=== PATIENT | female | born 1965 | race Two or more races ===

== ENCOUNTER 2016-05-13 10:34 | Emergency (ER) | payer OTHER ==
[~2016-05-13] VITALS: Ht 162.6 cm; Wt 79.4 kg
[~2016-05-13 10:34] MED LIST: ASPIRIN325 MG ORAL; ATORVASTATIN CA10 MG ORAL; CIPROFLOXACIN500 M2 ORAL; COZAAR25 MG ORAL; FLONASE1 SPRAYS NASAL; LANTUS SOL100 UNIT/1 SUBQ; LOSARTAN POTAS100 MG ORAL; METFORMIN HCL1000 M2 ORAL; METFORMIN HCL500 M1 ORAL; NAPROXEN250 M1 PO; NOVOLIN R100 UNIT/1 SUBQ; PANTOPRAZOLE SO20 MG ORAL; TYLENOL EXTRA500 MG ORAL; ZANTAC150 MG ORAL
[2016-05-13 11:02] VITALS: BP 103/66
[2016-05-13] MEDS ORDERED: PROMETHAZINE-C118 M1 ORAL (11:22)
[2016-05-13] MEDS ORDERED: AZITHROMYCIN250 MG ORAL (11:22)
[2016-05-13] MEDS ORDERED: IBUPROFEN600 MG ORAL (11:22)
[2016-05-13 11:45] VITALS: BP 103/66
--- NOTE | 2016-05-13 14:13 | Emergency Room Report ---
History of Present Illness General Chief Complaint: Upper Respiratory Illness Source: Patient Present Illness HPI 50-year-old female presents to ED for evaluation of cough fever x3 days. Cough is productive with greenish phlegm. Notes bodyaches and chills. Patient has temperature of 100.0 in ED. Patient states she feels weak. Denies nausea or vomiting. No sick contacts or recent travel. Denies chest pain or shortness of breath. No other aggravating or leading factors. Denies any other associated symptoms Allergies: Coded Allergies: PENICILLINS (Unverified Allergy, Intermediate, 05/09/14) Uncoded Allergies: PENICILLIN (Allergy, Unknown, 11/26/15) Patient History Past Medical History: DM, HTN Past Surgical History: none Pertinent Family History: none Social History: Denies: alcohol use, drug use, smoking Last Menstrual Period: 05/11/16 Now: No Immunizations: UTD Reviewed Nursing Documentation: PMH: Agreed, PSxH: Agreed Nursing Documentation-PMH Past Medical History: No History, Except For Hx Hypertension: Yes Hx Pacemaker: No Hx Asthma: No Hx COPD: No Hx Diabetes: Yes Hx Cancer: No Hx Gastrointestinal Problems: No Hx Dialysis: No Hx Neurological Problems: No Hx Cerebrovascular Accident: No Hx Seizures: No Review of Systems All Other Systems: negative except mentioned in HPI Physical Exam Vital Signs Date Time Temp Pulse Resp B/P Pulse Ox O2 Delivery O2 Flow Rate FiO2 05/13/16 10:45 100.0 112 20 103/66 98 Room Air Sp02 EP Interpretation: reviewed, normal General Appearance: no apparent distress, alert, GCS 15, non-toxic Head: normocephalic, atraumatic Eyes: bilateral eye PERRL, bilateral eye normal inspection ENT: hearing grossly normal, normal pharynx, no angioedema, normal voice Neck: full range of motion, supple/symm/no masses Respiratory: chest non-tender, lungs clear, normal breath sounds, speaking full sentences Cardiovascular #1: regular rate, rhythm, no edema Cardiovascular #2: 2+ carotid (R), 2+ carotid (L), 2+ radial (R), 2+ radial (L) , 2+ dorsalis pedis (R), 2+ dorsalis pedis (L) Gastrointestinal: normal bowel sounds, non tender, soft, non-distended, no guarding, no rebound Rectal: deferred Genitourinary: normal inspection, no CVA tenderness Musculoskeletal: back normal, gait/station normal, normal range of motion, non- tender Neurologic: alert, oriented x3, responsive, motor strength/tone normal, sensory intact, speech normal Psychiatric: judgement/insight normal, memory normal, mood/affect normal, no suicidal/homicidal ideation Reflexes: 3+ bicep (R), 3+ bicep (L), 3+ tricep (R), 3+ tricep (L), 3+ knee (R) , 3+ knee (L) Skin: normal color, no rash, warm/dry, well hydrated Lymphatic: no adenopathy Medical Decision Making Diagnostic Impression: Primary Impression: Atypical pneumonia ER Course Hospital Course 50-year-old female presents to ED complaining of productive cough, chills, fever Differential diagnoses include: URI, pharyngitis, otitis media, asthma Clinical course Patient placed on stretcher. After initial history, physical exam reveals a female in no acute distress. Bilateral TM unremarkable. No pharyngeal erythema. No tonsillar exudates. No lymphadenopathy. lungs clear. abdomen soft. Clinical findings consistent with atypical pneumonia. will treat with abx Diagnosis - atypical pneumonia Stable and discharged home with Rx Zpack, cough syrup, motrin. Instructed to followup with PMD. Return to ED if symptoms recur or worsen Last Vital Signs Date Time Temp Pulse Resp B/P Pulse Ox O2 Delivery O2 Flow Rate FiO2 05/13/16 11:45 100.0 20 103/66 98 Room Air 05/13/16 11:02 112 Status: improved Disposition: HOME, SELF-CARE Condition: Stable Scripts Ibuprofen* (MOTRIN*) 600 Mg Tablet 600 MG ORAL Q8H Y for For Pain, #30 TAB 0 Refills Prov: ADELE LUONG M.D. 05/13/16 Codeine/Promethazine Hcl* (PROMETHAZINE-CODEINE SYRUP*) 118 Ml Syrup 5 ML ORAL Q6H Y for For Cough, #118 ML 0 Refills Prov: ADELE LUONG M.D. 05/13/16 Azithromycin* (ZITHROMAX*) 250 Mg Tablet 250 MG ORAL DAILY, #6 TAB 0 Refills Take two tablets by mouth today, then take one tablet by mouth daily for four days Prov: ADELE LUONG M.D. 05/13/16 Patient Instructions: Community-Acquired Pneumonia, Adult, [id number] ADELE LUONG M.D. May 13, 2016 14:13
== END 2016-05-13 11:53 | disposition home or self-care (01) ==
LOC: EMR 11:00
DX: J18.9 Pneumonia, unspecified organism (principal); R50.9 Fever, unspecified; E11.9 Type 2 diabetes mellitus without complications; I10 Essential (primary) hypertension; Z88.0 Allergy status to penicillin
CPT/HCPCS: 99284

== ENCOUNTER 2016-10-03 02:14 | Emergency (ER) | payer OTHER ==
[~2016-10-03] VITALS: Ht 162.6 cm; Wt 75.7 kg
[~2016-10-03 02:14] MED LIST changes: +AZITHROMYCIN250 MG ORAL; +IBUPROFEN600 MG ORAL; +PROMETHAZINE-C118 M1 ORAL
[2016-10-03 02:30] VITALS: BP 137/80
[2016-10-03] MEDS ORDERED: Nitroglycerin Subl 0.4mg tab (Bottle Of 25) SL PRN (02:30)
[2016-10-03] MEDS ORDERED: Aspirin Baby 81mg ORAL ONE (02:30)
[2016-10-03 02:34] VITALS: BP 137/80
[2016-10-03 02:49] LABS: EOSINOPHILS % (AUTO) 2.2 % (0.0-3.0); MEAN CORPUSCULAR HEMOGLOBIN 28.9 PG (27.0-31.0); MEAN CORPUSCULAR HGB CONC 33.4 G/DL (32.0-36.0); MEAN CORPUSCULAR VOLUME 87 FL (80-99); MEAN PLATELET VOLUME 9.1 FL (6.5-10.1); MONOCYTES % (AUTO) 6.9 % (1.0-10.0); NEUTROPHILS % (AUTO) 48.9 % (45.0-75.0); PLATELET COUNT 210 K/UL (150-450); RED BLOOD COUNT 4.94 M/UL (4.20-5.40); RED CELL DISTRIBUTION WIDTH 12.1 % (11.6-14.8); WHITE BLOOD COUNT 9.5 K/UL (4.8-10.8)
[2016-10-03 03:07] LABS: ALANINE AMINOTRANSFERASE 14 U/L (3-33); ALBUMIN/GLOBULIN RATIO 1.2 (1.0-2.7); ANION GAP 17 (5-15); ASPARTATE AMINO TRANSFERASE 20 U/L (5-40); CALCIUM 9.7 mg/dL (8.6-10.2); CARBON DIOXIDE 20 mEQ/L (20-30); CHLORIDE 100 mEQ/L (98-107); CREATININE 0.5 mg/dL (0.5-0.9); GLOMERULAR FILTRATION RATE > 60 mL/min (>60); HEMOLYSIS 24; POTASSIUM 3.6 mEQ/L (3.4-4.9); SODIUM 137 mEQ/L (135-145); TOTAL PROTEIN 7.3 g/dL (6.6-8.7)
[2016-10-03 03:13] LABS: TROPONIN I < 0.30 ng/mL (<=0.30)
[2016-10-03] MEDS ORDERED: Mylanta II UD 30ml ORAL ONE (03:15)
[2016-10-03] MEDS ORDERED: PRILOSEC OTC20 MG ORAL (03:36)
--- NOTE | 2016-10-03 03:37 | Emergency Room Report ---
History of Present Illness General Chief Complaint: Chest Pain Source: Patient Present Illness HPI This is a 51-year-old female with a history of diabetes. Also history anxiety and gastritis. She presents with chief complaint of epigastric pain going to her right chest. Onset for last couple hours. No nausea no vomiting. No fever or chills. No diaphoresis. Pain is 7/10. No exertional component. She already has her gallbladder removed. Allergies: Coded Allergies: PENICILLINS (Unverified Allergy, Intermediate, 05/09/14) Uncoded Allergies: PENICILLIN (Allergy, Unknown, 11/26/15) Patient History Past Medical History: see triage record, old chart reviewed, DM Past Surgical History: other Pertinent Family History: none Social History: Denies: smoking Last Menstrual Period: "LAST WEEK" Now: No Immunizations: other Reviewed Nursing Documentation: PMH: Agreed, PSxH: Agreed Nursing Documentation-PMH Hx Hypertension: Yes Hx Pacemaker: No Hx Asthma: No Hx COPD: No Hx Diabetes: Yes Hx Cancer: No Hx Gastrointestinal Problems: No Hx Dialysis: No Hx Neurological Problems: No Hx Cerebrovascular Accident: No Hx Seizures: No Review of Systems Eye: Denies: eye pain, blurred vision ENT: Denies: ear pain, nose congestion, throat swelling Respiratory: Denies: cough, shortness of breath Cardiovascular: Reports: chest pain, Denies: palpitations Gastrointestinal: Reports: abdominal pain, Denies: diarrhea, nausea, vomiting Musculoskeletal: Denies: back pain, joint pain Skin: Denies: rash Neurological: Denies: headache, numbness Endocrine: Denies: increased thirst, increased urine Hematologic/Lymphatic: Denies: easy bruising All Other Systems: negative except mentioned in HPI Physical Exam Vital Signs Date Time Temp Pulse Resp B/P (MAP) Pulse Ox O2 Delivery O2 Flow Rate FiO2 10/03/16 02:22 97.7 76 18 137/80 100 Room Air vitals normal Sp02 EP Interpretation: reviewed, normal General Appearance: well appearing, no apparent distress, alert Head: normocephalic, atraumatic Eyes: bilateral eye PERRL, bilateral eye EOMI ENT: hearing grossly normal, normal pharynx Neck: full range of motion, supple, no meningismus Respiratory: chest non-tender, lungs clear, normal breath sounds Cardiovascular #1: regular rate, rhythm, no murmur Gastrointestinal: normal bowel sounds, non tender, no mass, no organomegaly, no bruit, non-distended Musculoskeletal: back normal, gait/station normal, normal range of motion Neurologic: alert, oriented x3 Psychiatric: anxious Skin: warm/dry Medical Decision Making Diagnostic Impression: Primary Impression: Chest pain Qualified Codes: R07.9 - Chest pain, unspecified ER Course Patient with atypical chest pain. Most likely GI related. No evidence of ACS, PE, dissection to name a few. Pain better after answer. No relief with nitroglycerin. We'll discharge home. Lab Results Impression labs normal EKG Diagnostic Results Rate: normal Rhythm: NSR ST Segments: no acute changes ASA given to the pt in ED: Yes Rhythm Strip Diag. Results Rhythm Strip Time: 03:35 EP Interpretation: yes Rate: 71 Rhythm: NSR, no PVC's, no ectopy Chest X-Ray Diagnostic Results Chest X-Ray Diagnostic Results : Chest X-Ray Ordered: Yes # of Views/Limited/Complete: 1 View Indication: Chest Pain EP Interpretation: Yes Interpretation: no consolidation, no effusion, no pneumothorax, no acute cardiopulmonary disease Impression: No acute disease Interpreting ER Provider: Electronically signed by Vladimir Marinelli MD Last Vital Signs Date Time Temp Pulse Resp B/P (MAP) Pulse Ox O2 Delivery O2 Flow Rate FiO2 10/03/16 02:34 137/80 10/03/16 02:30 76 18 Room Air 10/03/16 02:30 97.7 100 Status: improved Disposition: HOME, SELF-CARE Condition: Stable Scripts Omeprazole Magnesium (PRILOSEC OTC) 20 Mg Tablet. 20 MG ORAL DAILY, #30 TAB Prov: VLADIMIR MARINELLI M.D. 10/03/16 Patient Instructions: Nonspecific Chest Pain Additional Instructions: Follow up with your in 7 days. Return if symptom worsen. VLADIMIR MARINELLI M.D. Oct 03, 2016 03:37
[2016-10-03 03:57] LABS: CKMB 2.4 ng/mL (< 3.8)
--- NOTE | 2016-10-03 10:30 | Diagnostic Imaging Report ---
Indication: Chest pain Comparison: None A single view chest radiograph was obtained. Findings: Cardiomediastinal appearance is within normal limits for age. Pulmonary vascularity is appropriate. The diaphragmatic contour is smooth and costophrenic angles are sharp. No pleural effusions are identified. The bones are unremarkable. Impression: No acute findings
--- NOTE | 2016-10-03 15:33 | Cardiology Report ---
APPROVED REPORT EKG Measurement Heart [id number] Normal sinus rhythm Rightward axis Borderline ECG
== END 2016-10-03 03:49 | disposition home or self-care (01) ==
LOC: EMR 02:41
DX: R07.9 Chest pain, unspecified (principal); I10 Essential (primary) hypertension; E11.9 Type 2 diabetes mellitus without complications; Z88.0 Allergy status to penicillin; F41.9 Anxiety disorder, unspecified
CPT/HCPCS: 36415; 71010; 80053; 82550; 82553; 84484; 85025; 93005; 99284

== ENCOUNTER 2017-07-19 11:58 | Emergency (ER) | payer OTHER ==
[~2017-07-19] VITALS: Ht 162.6 cm; Wt 74.8 kg
[~2017-07-19 11:58] MED LIST changes: +PRILOSEC OTC20 MG ORAL
[2017-07-19 12:00] VITALS: BP 144/89
[2017-07-19] MEDS ORDERED: Dicyclomine HCl 10mg/5ml oral soln ORAL ONE (12:30)
[2017-07-19] MEDS ORDERED: Mylanta II UD 30ml ORAL ONE (12:30)
[2017-07-19] MEDS ORDERED: Ketorolac 30mg Inj IV ONE (12:30)
[2017-07-19] MEDS ORDERED: Lidocaine 2% Visc 15ml soln ORAL ONE (12:30)
--- NOTE | 2017-07-19 12:36 | Emergency Room Report ---
History of Present Illness General Chief Complaint: Female Urogenital Problems Source: Patient Present Illness HPI 51-year-old female patient presents to ER complaining of vaginal and anal bleeding times one day. Reports she's had normal gallbladder movements, denies diarrhea. Reports that the blood was noticed in her stool with straining and on toilet paper. Reports history of eating lots of spicy foods. reports history of gallbladder removal surgery. Denies history of GERD. Also complains of vaginal bleeding times one day. Reports last menstrual period was on 07/09 and lasted for a month. denies dysuria, hematuria, vaginal discharge. Denies rash. Reports had surgery to have her tubes tied. Denies fever, chest pain, shortness breath. Denies abdominal pain. Denies fainting. Denies vomiting. forced not taking any blood thinners. denies passage of clots. denies taking hormone medication. , no hx of complications or abortions. Reports hx of Diabetes, HTN. Denies hx of stroke or [place]. reports history of hemorrhoids. Allergies: Coded Allergies: PENICILLINS (Unverified Allergy, Intermediate, 05/09/14) Uncoded Allergies: PENICILLIN (Allergy, Unknown, 11/26/15) Patient History Past Medical History: see triage record Last Menstrual Period: 07/09/17 Reviewed Nursing Documentation: PMH: Agreed; PSxH: Agreed Nursing Documentation-PMH Past Medical History: No Stated History Hx Hypertension: Yes Hx Pacemaker: No Hx Asthma: No Hx COPD: No Hx Diabetes: Yes Hx Cancer: No Hx Gastrointestinal Problems: No Hx Dialysis: No Hx Neurological Problems: No Hx Cerebrovascular Accident: No Hx Seizures: No Review of Systems All Other Systems: negative except mentioned in HPI Physical Exam Vital Signs Date Time Temp Pulse Resp B/P (MAP) Pulse Ox O2 Delivery O2 Flow Rate FiO2 07/19/17 12:00 98.4 91 18 144/89 96 Room Air 98.4 Sp02 EP Interpretation: reviewed, normal General Appearance: well appearing, no apparent distress, alert, GCS 15, non- toxic Head: normocephalic, atraumatic Eyes: bilateral eye normal inspection, bilateral eye PERRL ENT: hearing grossly normal, normal pharynx, no angioedema, normal voice, uvula midline, moist mucus membranes Neck: full range of motion Respiratory: lungs clear, normal breath sounds, no rhonchi, no respiratory distress, no accessory muscle use, no wheezing, speaking full sentences Cardiovascular #1: regular rate, rhythm, no edema Gastrointestinal: non tender, soft, no mass, non-distended, no guarding, no rebound, other - negative Rovsing Rectal: hemorrhoids - No incarceration or strangulation Genitourinary: no CVA tenderness Musculoskeletal: back normal, digits/nails normal, gait/station normal, normal range of motion, non-tender Neurologic: alert, oriented x3, responsive, motor strength/tone normal, sensory intact Psychiatric: mood/affect normal Skin: no rash Medical Decision Making PA Attestation Dr. Rich is my supervising Physician whom patient management has been discussed with. Diagnostic Impression: Primary Impression: Hemorrhoids Additional Impressions: Uterine fibroid Dysfunctional uterine bleeding ER Course Pt presents to ED c/o vaginal bleeding and anal bleeding. DDX considered but are not limited to threatened , menorrhagia, DUB, UTI , constipation, hemorrhoids, fibroids, malignancy. no left lower quadrant pain, patient afebrile, low suspicion for diverticulitis , does not require CT of abdomen at this time. VITAL SIGNS are WNL, patient is afebrile. mild elevation of blood pressure, will continue to monitor. denies chest pain, shortness of breath. Does not require acute intervention at this time. History of hypertension, has taken medication. Ordered CBC, CMP, Type and Screen, UA, bHCG, IV NS and pelvic US. Tylenol for pain control. Consult OBGYN to determine discharge vs. admit vs. transfer to [facility]. ER COURSE: Patient resting comfortably, in no acute distress, nontoxic appearing. Patient reports pain symptoms resolved since onset. CBC shows no elevation in WBC, no signs of anemia, hemoglobin within normal limits. CMP unremarkable. Elevated blood glucose, likely related to hx of diabetes. Advised patient to take medications, f/u with PCP to discuss treatment and management of DM. UA results no WBCs, few epithelial cells bacteria, low suspicion for UTI, does not require antibiotics at this time. multiple RBCs and urine likely due to vaginal bleeding symptoms. Ordered ultrasound to evaluate for underlying pathology. PT, PTT, INR within normal limits. BetaHCG <1, patient unlikely or , hx of tubal ligation. Blood type O+ Pelvic US shows endometrium and uterine fibroids. Follow-up with [facility] for further management and evaluation. Uterine fibroids likely causing symptoms. Endometrium may be related to underlying cause, needs [facility] follow-up to rule out malignancy. follow-up with [facility], discuss further treatment and referral at that time. Take Tylenol for pain symptoms. Rectal exam shows patient has external hemorrhoids, no signs of strength elation or incarceration. instructed patient to not strain while defecating.Bleeding from rectum likely due to straining and diet. Drink plenty of fluids. avoid spicy foods. Will provide medication to patient. follow up with PCP, discuss referral to surgeon as needed for removal of hemorrhoids. provide Colace to help soften stool. patient resting comfortably in no acute distress, nontoxic appearing. Patient vitals within normal limits. Patient okay for discharge home. DISCHARGE: -Rx provided for Tylenol for pain -Rx provided for Annusol -Rx provided for Colace At this time pt. is stable for d/c to home. At this time patient is resting comfortably, in no acute distress, nontoxic appearing, smiling and talking without difficulty, smiling and laughing. Will provide printed patient care instructions, and any necessary prescriptions. Patient instructed to follow with OBGYN for further treatment and referral as needed. Care plan and follow up instructions have been discussed with the patient prior to discharge. Patient reports understanding and agreement to treatment plan. Patient questions asked and answered. ER precautions given, patient instructed to return to ER immediately for any new or worsening of symptoms. - Please note that this Emergency Department Report was dictated using [employer] capital clerk technology software, occasionally this can lead to erroneous entry secondary to interpretation by the dictation equipment. Labs Test 07/19/17 12:45 07/19/17 12:52 Urine Color Red Urine Appearance Cloudy Urine pH 6 (4.5-8.0) Urine Specific [place] 1.015 (1.005-1.035) Urine Protein 4+ (NEGATIVE) Urine Glucose (UA) 4+ (NEGATIVE) Urine Ketones Negative (NEGATIVE) Urine Occult Blood 5+ (NEGATIVE) Urine Nitrite Negative (NEGATIVE) Urine Bilirubin Negative (NEGATIVE) Urine Urobilinogen Normal MG/DL (0.0-1.0) Urine Leukocyte Esterase 1+ (NEGATIVE) Urine RBC Tntc /HPF (0 - 2) Urine WBC 0-2 /HPF (0 - 2) Urine Squamous Epithelial Cells Occasional /LPF Urine Bacteria Occasional /HPF (NONE) White Blood Count 8.8 K/UL (4.8-10.8) Red Blood Count 5.33 M/UL (4.20-5.40) Hemoglobin 15.3 G/DL (12.0-16.0) Hematocrit 45.9 % (37.0-47.0) Mean Corpuscular Volume 86 FL (80-99) Mean Corpuscular Hemoglobin 28.6 PG (27.0-31.0) Mean Corpuscular Hemoglobin Concent 33.2 G/DL (32.0-36.0) Red Cell Distribution Width 11.7 % (11.6-14.8) Platelet Count 186 K/UL (150-450) Mean Platelet Volume 10.7 FL (6.5-10.1) Neutrophils (%) (Auto) 66.8 % (45.0-75.0) Lymphocytes (%) (Auto) 25.4 % (20.0-45.0) Monocytes (%) (Auto) 5.1 % (1.0-10.0) Eosinophils (%) (Auto) 1.8 % (0.0-3.0) Basophils (%) (Auto) 0.9 % (0.0-2.0) Prothrombin Time 10.1 SEC (9.30-11.50) Prothromb Time International Ratio 1.0 (0.9-1.1) Activated Partial Thromboplast Time 25 SEC (23-33) Sodium Level 133 MMOL/L (136-145) Potassium Level 4.1 MMOL/L (3.5-5.1) Chloride Level 100 MMOL/L (98-107) Carbon Dioxide Level 27 MMOL/L (21-32) Anion Gap 6 mmol/L (5-15) Blood Urea Nitrogen 11 mg/dL (7-18) Creatinine 0.7 MG/DL (0.55-1.30) Estimat Glomerular Filtration Rate > 60 mL/min (>60) Glucose Level 341 MG/DL (74-106) Calcium Level 9.1 MG/DL (8.5-10.1) Total Bilirubin 0.3 MG/DL (0.2-1.0) Aspartate Amino Transf (AST/SGOT) 20 U/L (15-37) Alanine Aminotransferase (ALT/SGPT) 31 U/L (12-78) Alkaline Phosphatase 128 U/L (46-116) Total Protein 8.0 G/DL (6.4-8.2) Albumin 3.9 G/DL (3.4-5.0) Globulin 4.1 g/dL Albumin/Globulin Ratio 1.0 (1.0-2.7) Lipase 150 U/L (73-393) Human Chorionic Gonadotropin, Quant 1 mIU/mL (1-6) CT/MRI/US Diagnostic Results CT/MRI/US Diagnostic Results : Imaging Test Ordered: Pelvic US Impression Impression: Somewhat thickened, 14 mm, endometrium. Small central fluid collection may represent a small amount of blood, given stated clinical history of vaginal bleeding Small uterine fibroids No definite adnexal mass. Note Limited visualization of the right ovary, nonvisualization of the left ovary, however. Small amount of free cul-de-sac fluid, may be physiologic if patient still perimenopausal Last Vital Signs Date Time Temp Pulse Resp B/P (MAP) Pulse Ox O2 Delivery O2 Flow Rate FiO2 07/19/17 12:00 98.4 91 18 144/89 96 Room Air 98.4 Disposition: HOME, SELF-CARE Condition: Stable Scripts Acetaminophen* (TYLENOL EXTRA STRENGTH*) 500 Mg Tablet 500 MG ORAL Q8H PRN for Prn Headache/Temp > 101, #30 TAB 0 Refills Prov: Eduardo Hernandez 07/19/17 Docusate Sodium* (COLACE*) 100 Mg Capsule 100 MG ORAL TWICE A DAY, #10 CAP Prov: Eduardo Hernandez 07/19/17 Hydrocortisone Acetate* (ANUSOL-HC*) 25 Mg Supp.rect 1 SUPP RECTAL TWICE A DAY, #20 SUPP Prov: Eduardo Hernandez 07/19/17 Referrals: NEHEMIAS KEMP Patient Instructions: Dysfunctional Uterine Bleeding, Hemorrhoids, [id number] , Uterine Fibroids, [id number] Additional Instructions: Followup with primary care provider in 3 -5 days. Discuss referral to surgeon as needed for removal of hemorrhoids. Followup with behavior support specialist 2 discussed bleeding symptoms. Take medications as directed. Avoid straining and spicy food. Patient questions asked and answered. ER precautions given, patient instructed to return to ER immediately for any new or worsening of symptoms. Eduardo Hernandez Jul 19, 2017 12:36
[2017-07-19 13:08] LABS: BASOPHILS % (AUTO) 0.9 % (0.0-2.0); EOSINOPHILS % (AUTO) 1.8 % (0.0-3.0); HEMATOCRIT 45.9 % (37.0-47.0); HEMOGLOBIN 15.3 G/DL (12.0-16.0); LYMPHOCYTES % (AUTO) 25.4 % (20.0-45.0); MEAN CORPUSCULAR VOLUME 86 FL (80-99); MONOCYTES % (AUTO) 5.1 % (1.0-10.0); NEUTROPHILS % (AUTO) 66.8 % (45.0-75.0); PLATELET COUNT 186 K/UL (150-450); RED BLOOD COUNT 5.33 M/UL (4.20-5.40); RED CELL DISTRIBUTION WIDTH 11.7 % (11.6-14.8); WHITE BLOOD COUNT 8.8 K/UL (4.8-10.8)
[2017-07-19 13:30] LABS: ANION GAP 6 mmol/L (5-15); BLOOD UREA NITROGEN 11 mg/dL (7-18); CALCIUM 9.1 MG/DL (8.5-10.1); CARBON DIOXIDE 27 MMOL/L (21-32); CHLORIDE 100 MMOL/L (98-107); CREATININE 0.7 MG/DL (0.55-1.30); POTASSIUM 4.1 MMOL/L (3.5-5.1); SODIUM 133 MMOL/L (136-145)
[2017-07-19 13:34] LABS: ALANINE AMINOTRANSFERASE 31 U/L (12-78); ALBUMIN 3.9 G/DL (3.4-5.0); ALKALINE PHOSPHATASE 128 U/L (46-116); ASPARTATE AMINO TRANSFERASE 20 U/L (15-37); BILIRUBIN,TOTAL 0.3 MG/DL (0.2-1.0)
[2017-07-19 13:34] LABS: APPEARANCE,URINE CLOUDY; BILIRUBIN, URINE NEGATIVE (NEGATIVE); GLUCOSE, URINE (UA) 4+ (NEGATIVE); KETONES,URINE NEGATIVE (NEGATIVE); LEUKOCYTE ESTERASE ,URINE 1+ (NEGATIVE); NITRITE,URINE NEGATIVE (NEGATIVE); PH,URINE 6 (4.5-8.0); PROTEIN,URINE 4+ (NEGATIVE); UROBILINOGEN,URINE NORMAL MG/DL (0.0-1.0)
[2017-07-19 13:35] LABS: COLOR,URINE RED
[2017-07-19] MEDS ORDERED: ANUSOL-HC25 MG RECTAL (13:38)
[2017-07-19] MEDS ORDERED: COLACE100 MG ORAL (13:38)
[2017-07-19 14:00] VITALS: BP 140/78
[2017-07-19 16:21] VITALS: BP 140/85
--- NOTE | 2017-07-19 17:03 | Diagnostic Imaging Report ---
Indication: Vaginal bleeding x1 month Technique: Transabdominal and transvaginal images Comparison: none Findings: Uterus measures 8.8 cm length by 5 cm AP. Endometrium measures 14 mm thick. Small focal fluid collection seen centrally within the endometrium. There are small anterior fundal fibroids, largest measuring 2.3 cm long axis dimension. There is a small amount of free cul-de-sac fluid. Small cervical nabothian cysts are demonstrated. On the endovaginal exam, the ovaries are obscured by adjacent bowel gas. On the transvaginal exam, the right ovary measures 3.4 cm in length. The left ovary could not be visualized on either set of images. Impression: Somewhat thickened, 14 mm, endometrium. Small central fluid collection may represent a small amount of blood, given stated clinical history of vaginal bleeding Small uterine fibroids No definite adnexal mass. Note Limited visualization of the right ovary, nonvisualization of the left ovary, however. Small amount of free cul-de-sac fluid, may be physiologic if patient still perimenopausal
[2017-07-19] MEDS ORDERED: TYLENOL EXTRA500 MG ORAL (17:39)
[2017-07-19 18:42] VITALS: BP 128/82
== END 2017-07-19 18:42 | disposition home or self-care (01) ==
LOC: EMR 12:38
DX: K64.9 Unspecified hemorrhoids (principal); D25.9 Leiomyoma of uterus, unspecified; N93.8 Other specified abnormal uterine and vaginal bleeding; I10 Essential (primary) hypertension; E11.9 Type 2 diabetes mellitus without complications; Z88.0 Allergy status to penicillin
CPT/HCPCS: 36415; 76830; 76856; 80053; 81003; 83690; 84702; 85025; 85610; 85730; 86850; 86900; 86901; 96360; 96374; 99284; J1885

== ENCOUNTER 2018-07-07 22:30 | Emergency (ER) | payer OTHER ==
[~2018-07-07] VITALS: Ht 160 cm; Wt 74.8 kg
[~2018-07-07 22:30] MED LIST changes: +ANUSOL-HC25 MG RECTAL; +COLACE100 MG ORAL; +DICYCLOMINE HCL10 MG ORAL; +ONDANSETRON ODT4 MG BC; +RANITIDINE HCL150 MG ORAL
[2018-07-07 22:45] VITALS: BP 126/76
--- NOTE | 2018-07-07 22:45 | NUR ---
ED Nurse Note: Pt walked in to ER with reports of epigastric pain x2-3 days with N/V/D. States she was seen here for same recently. Pain progressively worse today with vomiting 3x and diarrhea approx every 30 min. Pt A&O x4. Noted to be tearful & grasping at abd. No active vomiting at present. Ambulatory with steady gait. break out worker attached. Bed in lowest locked position. Side rails up x2. Fall & safety precautions maintained. at bedside.
[2018-07-07] MEDS ORDERED: Morphine Sulfate 4mg/ml Inj (IV USE ONLY) IVP ONE (23:00)
[2018-07-07 23:04] LABS: BASOPHILS % (AUTO) 1.3 % (0.0-2.0); EOSINOPHILS % (AUTO) 0.3 % (0.0-3.0); HEMATOCRIT 41.1 % (37.0-47.0); HEMOGLOBIN 14.8 G/DL (12.0-16.0); LYMPHOCYTES % (AUTO) 36.1 % (20.0-45.0); MEAN CORPUSCULAR VOLUME 80 FL (80-99); MONOCYTES % (AUTO) 12.7 % (1.0-10.0); NEUTROPHILS % (AUTO) 49.6 % (45.0-75.0); PLATELET COUNT 152 K/UL (150-450); RED BLOOD COUNT 5.12 M/UL (4.20-5.40); RED CELL DISTRIBUTION WIDTH 11.2 % (11.6-14.8); WHITE BLOOD COUNT 5.5 K/UL (4.8-10.8)
[2018-07-07 23:16] LABS: ANION GAP 13 mmol/L (5-15); BLOOD UREA NITROGEN 6 mg/dL (7-18); CALCIUM 8.8 MG/DL (8.5-10.1); CARBON DIOXIDE 21 MMOL/L (21-32); CHLORIDE 100 MMOL/L (98-107); CREATININE 0.6 MG/DL (0.55-1.30); POTASSIUM 3.5 MMOL/L (3.5-5.1); SODIUM 134 MMOL/L (136-145)
[2018-07-07 23:20] LABS: ALANINE AMINOTRANSFERASE 89 U/L (12-78); ALBUMIN 3.1 G/DL (3.4-5.0); ALBUMIN/GLOBULIN RATIO 0.8 (1.0-2.7); ALKALINE PHOSPHATASE 141 U/L (46-116); ASPARTATE AMINO TRANSFERASE 44 U/L (15-37); BILIRUBIN,TOTAL 0.6 MG/DL (0.2-1.0)
[2018-07-08] MEDS ORDERED: Morphine Sulfate 4mg/ml Inj (IV USE ONLY) IVP ONE
--- NOTE | 2018-07-08 00:22 | NUR ---
ED Nurse Note: Pt to US.
--- NOTE | 2018-07-08 01:08 | NUR ---
ED Nurse Note: Return from US. Pt reports decreased pain & is noted to be more comfortable.
[2018-07-08 01:09] VITALS: BP 136/74
[2018-07-08 01:32] LABS: APPEARANCE,URINE CLEAR; BILIRUBIN, URINE NEGATIVE (NEGATIVE); COLOR,URINE PALE YELLOW; GLUCOSE, URINE (UA) 4+ (NEGATIVE); KETONES,URINE 4+ (NEGATIVE); LEUKOCYTE ESTERASE ,URINE NEGATIVE (NEGATIVE); NITRITE,URINE NEGATIVE (NEGATIVE); PH,URINE 6 (4.5-8.0); UROBILINOGEN,URINE NORMAL MG/DL (0.0-1.0)
[2018-07-08 01:40] LABS: PROTEIN,URINE NEGATIVE (NEGATIVE)
--- NOTE | 2018-07-08 02:07 | Emergency Room Report ---
History of Present Illness General Chief Complaint: Abdominal Pain Source: Patient, Medical Record Present Illness HPI Patient is a 52-year-old female presented after increased nausea and vomiting and abdominal pain. Patient had prior history of cholecystectomy. She reports having persistent pain to the abdomen. Patient had been seen here one day prior to arrival for similar symptoms and was diagnosed with colitis. She had CT imaging at that time which showed a transverse as well as descending colon thickening. She had not been having any fever. She denies any bloody stools. Patient reports having some diarrhea. She reports having persistent abdominal pain which is somewhat worsened. Allergies: Coded Allergies: PENICILLINS (Unverified Allergy, Intermediate, 05/09/14) Uncoded Allergies: PENICILLIN (Allergy, Unknown, 11/26/15) Patient History Past Medical History: see triage record, DM Last Menstrual Period: 06/2018 Now: No Reviewed Nursing Documentation: PMH: Agreed; PSxH: Agreed Nursing Documentation-PMH Past Medical History: No History, Except For Hx Hypertension: Yes Hx Pacemaker: No Hx Asthma: No Hx COPD: No Hx Diabetes: Yes Hx Cancer: No Hx Gastrointestinal Problems: No Hx Dialysis: No Hx Neurological Problems: No Hx Cerebrovascular Accident: No Hx Seizures: No Review of Systems All Other Systems: negative except mentioned in HPI Physical Exam Vital Signs Date Time Temp Pulse Resp B/P (MAP) Pulse Ox O2 Delivery O2 Flow Rate FiO2 07/07/18 22:40 98.2 90 18 126/76 (93) 99 Room Air Sp02 EP Interpretation: reviewed, normal General Appearance: normal inspection, well appearing, alert, GCS 15, moderate distress Head: atraumatic ENT: normal ENT inspection, hearing grossly normal, normal voice Neck: normal inspection, full range of motion, supple, no bony tend Respiratory: normal inspection, lungs clear, normal breath sounds, no respiratory distress, no retraction, no wheezing Cardiovascular #1: regular rate, rhythm, no edema Gastrointestinal: normal inspection, normal bowel sounds, non tender, soft, no guarding, no hernia, tenderness - mild diffuse Genitourinary: no CVA tenderness Musculoskeletal: normal inspection, back normal, normal range of motion Neurologic: normal inspection, alert, oriented x3, responsive, physical science teacher III-XII nml as tested, speech normal Psychiatric: normal inspection, judgement/insight normal, mood/affect normal Skin: normal inspection, normal color, no rash Medical Decision Making Diagnostic Impression: Primary Impression: Colitis ER Course Patient presented for abdominal pain. Differential diagnosis include was not limited to colitis, appendicitis, ischemic bowel, mesenteric adenitis among others. Because of complexity of patient's case laboratory testing and imaging studies were ordered. Laboratory testing was unremarkable. Patient was noted to have recent CT imaging which showed multiple areas of thickening of bowel wall as well as inflammatory changes. Patient was started on IV pain medications. She was started on IV fluids and antiemetics. She is noted to have some improvement. was contacted for capitated hospital transfer due to continued pain. Labs Test 07/07/18 22:24 07/07/18 23:35 07/08/18 01:16 White Blood Count 5.5 K/UL (4.8-10.8) Red Blood Count 5.12 M/UL (4.20-5.40) Hemoglobin 14.8 G/DL (12.0-16.0) Hematocrit 41.1 % (37.0-47.0) Mean Corpuscular Volume 80 FL (80-99) Mean Corpuscular Hemoglobin 28.8 PG (27.0-31.0) Mean Corpuscular Hemoglobin Concent 35.9 G/DL (32.0-36.0) Red Cell Distribution Width 11.2 % (11.6-14.8) Platelet Count 152 K/UL (150-450) Mean Platelet Volume 7.3 FL (6.5-10.1) Neutrophils (%) (Auto) 49.6 % (45.0-75.0) Lymphocytes (%) (Auto) 36.1 % (20.0-45.0) Monocytes (%) (Auto) 12.7 % (1.0-10.0) Eosinophils (%) (Auto) 0.3 % (0.0-3.0) Basophils (%) (Auto) 1.3 % (0.0-2.0) Prothrombin Time 10.6 SEC (9.30-11.50) Prothromb Time International Ratio 1.0 (0.9-1.1) Activated Partial Thromboplast Time 27 SEC (23-33) Sodium Level 134 MMOL/L (136-145) Potassium Level 3.5 MMOL/L (3.5-5.1) Chloride Level 100 MMOL/L (98-107) Carbon Dioxide Level 21 MMOL/L (21-32) Anion Gap 13 mmol/L (5-15) Blood Urea Nitrogen 6 mg/dL (7-18) Creatinine 0.6 MG/DL (0.55-1.30) Estimat Glomerular Filtration Rate > 60 mL/min (>60) Glucose Level 299 MG/DL (74-106) Calcium Level 8.8 MG/DL (8.5-10.1) Total Bilirubin 0.6 MG/DL (0.2-1.0) Aspartate Amino Transf (AST/SGOT) 44 U/L (15-37) Alanine Aminotransferase (ALT/SGPT) 89 U/L (12-78) Alkaline Phosphatase 141 U/L (46-116) Total Protein 7.2 G/DL (6.4-8.2) Albumin 3.1 G/DL (3.4-5.0) Globulin 4.1 g/dL Albumin/Globulin Ratio 0.8 (1.0-2.7) Lipase 201 U/L (73-393) Lactic Acid Level 1.20 mmol/L (0.4-2.0) Urine Color Pale yellow Urine Appearance Clear Urine pH 6 (4.5-8.0) Urine Specific Williamson 1.015 (1.005-1.035) Urine Protein Negative (NEGATIVE) Urine Glucose (UA) 4+ (NEGATIVE) Urine Ketones 4+ (NEGATIVE) Urine Blood Negative (NEGATIVE) Urine Nitrite Negative (NEGATIVE) Urine Bilirubin Negative (NEGATIVE) Urine Urobilinogen Normal MG/DL (0.0-1.0) Urine Leukocyte Esterase Negative (NEGATIVE) Last Vital Signs Date Time Temp Pulse Resp B/P (MAP) Pulse Ox O2 Delivery O2 Flow Rate FiO2 07/08/18 01:09 98.2 07/08/18 01:09 78 12 136/74 95 Room Air Status: improved Disposition: HOME, SELF-CARE Condition: Stable Referrals: NON PHYSICIAN (PCP) Matty Raymundo MD Jul 08, 2018 02:07
[2018-07-08 02:10] VITALS: BP 128/67
--- NOTE | 2018-07-08 02:11 | NUR ---
ED Nurse Note: Report given to Chris HENDRIX with [facility] [address] for transport to [facility]. Addendum: 07/08/18 at 0217 by ALEX ED Nurse Note: Pt A&O x4. IV patent & intact, saline lock. Leaving with all belongings. aware of pt transfer to [facility].
--- NOTE | 2018-07-08 02:25 | NUR ---
ED Nurse Note: Report given to David MCCAULEY at [facility]. Nurse accepts & acknowledges report.
--- NOTE | 2018-07-08 09:34 | Diagnostic Imaging Report ---
Indication: Abdominal pain Technique: Grayscale and duplex Doppler imaging of the abdomen performed. Comparison: None Findings: The liver is echogenic. Doppler interrogation of the main portal vein shows patency with hepatopedal, monophasic flow. There is no biliary ductal dilitation identified. The CBD measures 8 to 9 mm. The gallbladder is absent. The demonstrated part of the pancreas, aorta and IVC show no abnormalities. Both kidneys appear unremarkable. There is no hydronephrosis. The spleen is normal in size, contour and echogenicity. There is no free fluid identified. IMPRESSION: Mild fatty liver Status post cholecystectomy
== END 2018-07-08 02:26 | disposition home or self-care (01) ==
LOC: EMR 23:00
DX: K52.9 Noninfective gastroenteritis and colitis, unspecified (principal); Z90.49 Acquired absence of other specified parts of digestive tract; Z88.0 Allergy status to penicillin; I10 Essential (primary) hypertension; E11.9 Type 2 diabetes mellitus without complications
CPT/HCPCS: 36415; 76700; 80053; 81003; 83605; 83690; 85025; 85610; 85730; 96361; 96374; 96375; 96376; 99284; J2270; J2405; S0028

== ENCOUNTER 2019-03-25 09:11 | Emergency (ER) | payer OTHER ==
[~2019-03-25] VITALS: Ht 160 cm; Wt 70.3 kg
--- NOTE | 2019-03-25 09:28 | NUR ---
ED Nurse Note: Pt ambulated to ed c/o head pain s/p laundry pipbelen fell onto her head last sunday night. Placed on bed and gown; ERMD on bedside.
[2019-03-25 09:29] VITALS: BP 146/88
[2019-03-25] MEDS ORDERED: Metoclopramide 10mg/2ml Inj IM ONE (09:45)
[2019-03-25] MEDS ORDERED: Acetaminophen 500mg (ES) tab ORAL ONE (09:45)
[2019-03-25] MEDS ORDERED: DiphenhydrAMINE 25mg Tab ORAL ONE (09:45)
--- NOTE | 2019-03-25 09:51 | Emergency Room Report ---
History of Present Illness General Chief Complaint: Head Injury Source: Patient Present Illness HPI 53-year-old female presents with closed head injury, Sunday night, a piece of laundry pipe hit her on the head from the ceiling, no LOC no nausea no vomiting she endorses a dull headache, severity is mild, she endorses an ache where it hit, patient presents for evaluation Allergies: Coded Allergies: PENICILLINS (Unverified Allergy, Intermediate, 05/09/14) Uncoded Allergies: PENICILLIN (Allergy, Unknown, 11/26/15) Patient History Past Medical History: see triage record Last Menstrual Period: 5 months ago Reviewed Nursing Documentation: PMH: Agreed; PSxH: Agreed Nursing Documentation-PMH Past Medical History: No History, Except For Hx Hypertension: Yes Hx Pacemaker: No Hx Asthma: No Hx COPD: No Hx Diabetes: Yes Hx Cancer: No Hx Gastrointestinal Problems: No Hx Dialysis: No Hx Neurological Problems: No Hx Cerebrovascular Accident: No Hx Seizures: No Review of Systems All Other Systems: negative except mentioned in HPI Physical Exam Vital Signs Date Time Temp Pulse Resp B/P (MAP) Pulse Ox O2 Delivery O2 Flow Rate FiO2 03/25/19 09:19 98.4 80 16 146/88 (107) 100 Room Air Sp02 EP Interpretation: reviewed, normal General Appearance: well appearing, no apparent distress, alert Head: normocephalic, atraumatic, other - No obvious deformity no ecchymosis Eyes: bilateral eye PERRL, bilateral eye EOMI ENT: uvula midline, moist mucus membranes Neck: supple, thyroid normal, supple/symm/no masses Respiratory: lungs clear, no respiratory distress, no retraction, no accessory muscle use Cardiovascular #1: normal peripheral pulses, regular rate, rhythm, no edema, no gallop, no murmur Gastrointestinal: non tender, soft, no guarding, no rebound Musculoskeletal: normal inspection Neurologic: alert, oriented x3 Psychiatric: mood/affect normal Skin: no rash, warm/dry Medical Decision Making Diagnostic Impression: Primary Impression: Acute head injury Qualified Codes: S09.90XA - Unspecified injury of head, initial encounter ER Course 53-year-old female presents with headache after a pipe from the ceiling hit her head, no LOC, differential diagnosis includes subarachnoid subdural, closed head injury will obtain a CT scan, no obvious external injury on exam CT/MRI/US Diagnostic Results CT/MRI/US Diagnostic Results : Impression Procedure: CT Head no Contrast Indications: Headache, status post head trauma Technique: Spiral acquisitions obtained through the brain. Angled axial and coronal 5 x 5 mm slices were reconstructed. Total dose length product 1072 mGycm. CTDI vol(s) 53 mGy. Dose reduction achieved using automated exposure control Comparison: None. Findings: No acute intercranial hemorrhage or edema. No mass effect nor midline shift. Normal silva-white differentiation. Normal size ventricles and extra- axial CSF spaces. Visualized orbits and sinuses are unremarkable. The mastoids are clear. The calvarium is intact Impression: Negative The CT scanner at [facility] is accredited by the [employer] and the scans are performed using protocols designed to limit radiation exposure to as low as reasonably achievable to attain images of sufficient resolution adequate for diagnostic evaluation. Dictated By: Ramone Anderson MD Electronically Signed By: Ramone Anderson MD Signed Date/Time 03/25/19 1007 CC: Nawaf Alcantar MD Last Vital Signs Date Time Temp Pulse Resp B/P (MAP) Pulse Ox O2 Delivery O2 Flow Rate FiO2 03/25/19 09:29 98.4 65 16 146/88 100 Room Air Disposition: HOME, SELF-CARE Condition: Stable Scripts Ibuprofen* (MOTRIN*) 600 Mg Tablet 600 MG ORAL Q8H PRN for For Pain, #30 TAB 0 Refills Prov: Nawaf Alcantar MD 03/25/19 Referrals: NON PHYSICIAN (PCP) [facility] Diego Mcgovern [facility] Patient Instructions: Head Injury, Adult Additional Instructions: The patient was provided with discharge instructions, notified to follow-up with a primary care doctor and or specialist in the next 24-48 hours, and to return to the ED if they have worsening of their symptoms. Please note that this report is being documented using [employer] technology. This can lead to erroneous entry secondary to incorrect interpretation by the dictating instrument. Nawaf Alcantar MD Mar 25, 2019 09:51
--- NOTE | 2019-03-25 09:56 | NUR ---
ED Nurse Note: pt. came bcak from radiology in stable condition via wheelchair. no s/s of acute resp distress noted at this time
--- NOTE | 2019-03-25 10:12 | Diagnostic Imaging Report ---
Indications: Headache, status post head trauma Technique: Spiral acquisitions obtained through the brain. Angled axial and coronal 5 x 5 mm slices were reconstructed. Total dose length product 1072 mGycm. CTDI vol(s) 53 mGy. Dose reduction achieved using automated exposure control Comparison: None. Findings: No acute intercranial hemorrhage or edema. No mass effect nor midline shift. Normal silva-white differentiation. Normal size ventricles and extra-axial CSF spaces. Visualized orbits and sinuses are unremarkable. The mastoids are clear. The calvarium is intact Impression: Negative The CT scanner at [facility] is accredited by the [employer] and the scans are performed using protocols designed to limit radiation exposure to as low as reasonably achievable to attain images of sufficient resolution adequate for diagnostic evaluation.
[2019-03-25] MEDS ORDERED: IBUPROFEN600 MG ORAL (10:21)
[2019-03-25 10:24] VITALS: BP 133/84
--- NOTE | 2019-03-25 10:25 | NUR ---
ER DISCHARGE NOTE: Patient is cleared to be discharged per ERMD, pt is aox4, on room air, with stable vital signs. pt was given dc and prescription instructions, pt was able to verbalize understanding, pt id band removed. pt is able to ambulate with steady gait. pt took all belongings.
== END 2019-03-25 10:25 | disposition home or self-care (01) ==
LOC: EMR 09:27
DX: S09.90XA Unspecified injury of head, initial encounter (principal); W20.8XXA Other cause of strike by thrown, projected or falling object, initial encounter; Y92.9 Unspecified place or not applicable; I10 Essential (primary) hypertension; Z88.0 Allergy status to penicillin; E11.9 Type 2 diabetes mellitus without complications
CPT/HCPCS: 70450; 96372; J2765; J8540; Z7502; 99284

== ENCOUNTER 2019-04-03 05:58 | Emergency (ER) | payer OTHER ==
[~2019-04-03] VITALS: Ht 162.6 cm; Wt 74.8 kg
[2019-04-03 06:12] VITALS: BP 125/75
--- NOTE | 2019-04-03 06:15 | NUR ---
ED Nurse Note: Patient walked in from home d/t upper middle head pain radiating to left eye and cheek. Per patient, a pipe fell on her head a week ago and the pain is unresolved. Patient rates pain 8/10. Patient aao x 4 and ambulatory. No acute distress noted.
--- NOTE | 2019-04-03 06:22 | NUR ---
ED Nurse Note: ERMD at bedside.
[2019-04-03] MEDS ORDERED: Ketorolac 30mg Inj IV ONE (06:30)
[2019-04-03] MEDS ORDERED: Acetaminophen 500mg (ES) tab ORAL ONE (06:30)
[2019-04-03] MEDS ORDERED: DiphenhydrAMINE 50mg/ml Inj IVP ONE (06:30)
--- NOTE | 2019-04-03 06:31 | Emergency Room Report ---
History of Present Illness General Chief Complaint: Head Injury Source: Patient Present Illness HPI 53-year-old female history of posttraumatic headache after a pipe from the ceiling hit her head approximately a week ago now presents with a recurrent headache that started gradually on Sunday has been in the forehead and has been constant not worsened or, position no fevers no chills not sudden, not worst headache of her life, patient presents for evaluation Allergies: Coded Allergies: PENICILLINS (Unverified Allergy, Intermediate, 05/09/14) Uncoded Allergies: PENICILLIN (Allergy, Unknown, 11/26/15) Patient History Past Medical History: see triage record Last Menstrual Period: 2018 Now: No : 2 Para: 2 Reviewed Nursing Documentation: PMH: Agreed; PSxH: Agreed Nursing Documentation-PMH Hx Hypertension: Yes Hx Pacemaker: No Hx Asthma: No Hx COPD: No Hx Diabetes: Yes Hx Cancer: No Hx Gastrointestinal Problems: No Hx Dialysis: No Hx Neurological Problems: No Hx Cerebrovascular Accident: No Hx Seizures: No Review of Systems All Other Systems: negative except mentioned in HPI Physical Exam Vital Signs Date Time Temp Pulse Resp B/P (MAP) Pulse Ox O2 Delivery O2 Flow Rate FiO2 04/03/19 06:03 98.1 77 17 122/71 (88) 95 Room Air Sp02 EP Interpretation: reviewed, normal General Appearance: well appearing, no apparent distress, alert Head: normocephalic, atraumatic Eyes: bilateral eye PERRL, bilateral eye EOMI ENT: uvula midline, moist mucus membranes Neck: supple, thyroid normal, supple/symm/no masses Respiratory: lungs clear, no respiratory distress, no retraction, no accessory muscle use Cardiovascular #1: normal peripheral pulses, regular rate, rhythm, no edema, no gallop, no murmur Gastrointestinal: non tender, soft, no guarding, no rebound Musculoskeletal: normal inspection Neurologic: alert, motor strength/tone normal, melter supervisor III-XII nml as tested, oriented x3, cerebellar normal - Finger-nose testing intact, Romberg negative, no pronator drift, normal gait Psychiatric: mood/affect normal Skin: no rash, warm/dry Medical Decision Making Diagnostic Impression: Primary Impression: Post-traumatic headache, not intractable Qualified Codes: G44.319 - Acute post-traumatic headache, not intractable ER Course Based on the patient's history and physical there is very low clinical suspicion for significant intracranial pathology. There are no red flags of GUILLEN, not sudden in onset, not maximal in onset, no acute neurological findings, no fever with head stiffness. Low suspicion for subarachnoid hemorrhage, encephalitis, meningitis. Patient improved with GUILLEN cocktail, compazine, benadryl, decadron,tylenol, and magnesium Dispo home w/ return precautions follow-up with PCP CT/MRI/US Diagnostic Results CT/MRI/US Diagnostic Results : Impression Preliminary Findings Only See Final Report For Complete Findings CT HEAD Without Contrast: No acute intracranial hemorrhage, mass effect or midline shift. Radiologist: Lorna Ritter M.D. Study ready at 07:29 and initial results transmitted at 08:01 Last Vital Signs Date Time Temp Pulse Resp B/P (MAP) Pulse Ox O2 Delivery O2 Flow Rate FiO2 04/03/19 06:12 98.1 78 18 125/75 96 Room Air Disposition: HOME, SELF-CARE Condition: Stable Scripts Riboflavin (RIBOFLAVIN) 100 Mg Tablet 400 MG PO DAILY, #180 TAB Prov: Nawaf Alcantar MD 04/03/19 Referrals: [facility],REFERR[facility] (PCP) [facility] Diego Mcgovern [facility] Patient Instructions: General Headache Without Cause, [id number] Additional Instructions: The patient was provided with discharge instructions, notified to follow-up with a primary care doctor and or specialist in the next 24-48 hours, and to return to the ED if they have worsening of their symptoms. Please note that this report is being documented using [employer] technology. This can lead to erroneous entry secondary to incorrect interpretation by the dictating instrument. Nawaf Alcantar MD Apr 03, 2019 06:31
--- NOTE | 2019-04-03 07:01 | NUR ---
HAND-OFF: Report given to PARISA Vieyra.
--- NOTE | 2019-04-03 07:01 | NUR ---
ED Nurse Note: Patient taken to CT in stable condition.
--- NOTE | 2019-04-03 07:05 | NUR ---
ED Nurse Note: PT TAKEN FOR CT IN STABLE CONDITION.
--- NOTE | 2019-04-03 07:15 | NUR ---
ED Nurse Note: PT CAME BACK FROM CT AND STABLE. CONTINUED MAGNESIUM SULFATE INFUSION.
--- NOTE | 2019-04-03 08:02 | Diagnostic Imaging Report ---
Indications: Posttraumatic headache after being hit by a pipe in the head falling from a ceiling, recurrent headaches Technique: Spiral acquisitions obtained through the brain. Angled axial and coronal 5 x 5 mm slices were reconstructed. Total dose length product 1098 mGycm. CTDI vol(s) 53 mGy. Dose reduction achieved using automated exposure control Comparison: 03/25/2019 Findings: No acute intracranial hemorrhage or edema. No mass effect nor midline shift. Normal silva-white differentiation. Normal size ventricles and extra-axial CSF spaces. Mastoids are clear. Calvarium is intact. Sinuses are clear. No significant interim change Impression: Negative The CT scanner at [facility] is accredited by the [employer] and the scans are performed using protocols designed to limit radiation exposure to as low as reasonably achievable to attain images of sufficient resolution adequate for diagnostic evaluation.
[2019-04-03] MEDS ORDERED: RIBOFLAVIN100 MG PO (08:05)
[2019-04-03 08:31] VITALS: BP 134/65
--- NOTE | 2019-04-03 08:31 | NUR ---
ER DISCHARGE NOTE: Patient is cleared to be discharged per ERMD, pt is aox4, on room air, with stable vital signs. pt was given dc and prescription instructions, pt was able to verbalize understanding, pt id band and iv site removed without complications. pt is able to ambulate with steady gait. pt took all belongings.
== END 2019-04-03 08:31 | disposition home or self-care (01) ==
LOC: EMR 06:08
DX: G44.319 Acute post-traumatic headache, not intractable (principal); I10 Essential (primary) hypertension; E11.9 Type 2 diabetes mellitus without complications; W20.8XXA Other cause of strike by thrown, projected or falling object, initial encounter; Y93.9 Activity, unspecified; Y92.9 Unspecified place or not applicable; Z88.0 Allergy status to penicillin
CPT/HCPCS: 70450; 96365; 96375; J0780; J1200; J1885; J7030; J8540; Z7502; 99284

== ENCOUNTER 2019-11-17 11:48 | Emergency (ER) | payer OTHER ==
[~2019-11-17] VITALS: Ht 160 cm; Wt 74.8 kg
[~2019-11-17 11:48] MED LIST changes: +RIBOFLAVIN100 MG PO
[2019-11-17 12:08] VITALS: BP 142/80
--- NOTE | 2019-11-17 12:10 | NUR ---
ED Nurse Note: Patient walked in to ER c/o cut her left index finger with knife this morning. Patient calm, AAO x4, all VSS at this time, no active bleeding noticed.
[2019-11-17] MEDS ORDERED: Tetanus/Diptheria/Pertussis IM ONE (12:15)
--- NOTE | 2019-11-17 12:27 | Emergency Room Report ---
History of Present Illness General Chief Complaint: Laceration Source: Patient Present Illness HPI 54-year-old female with history of diabetes and hypertension currently controlled with medication here due to a laceration left index pain that started this morning. Patient was cutting vegetables when she accidentally got a laceration on the medial side of left index finger. Superficial laceration with no bleeding noted. Patient is not taking any blood thinners. Patient is up-to-date with tetanus shot. Is neurovascularly intact. Has full extremity affected side. Denies other injuries. Complains of 5 out of 10 pain without radiation. Denies tingling or numbness. Allergies: Coded Allergies: PENICILLINS (Unverified Allergy, Intermediate, 05/09/14) Uncoded Allergies: PENICILLIN (Allergy, Unknown, 11/26/15) COVID-19 Screening Contact w/high risk pt: No Experienced COVID-19 symptoms?: No COVID-19 Testing performed [employer]: No Patient History Past Medical History: see triage record Past Surgical History: none Pertinent Family History: none Now: No Immunizations: UTD Reviewed Nursing Documentation: PMH: Agreed; PSxH: Agreed Nursing Documentation-PMH Past Medical History: No History, Except For Hx Cardiac Problems: Yes - HYPERCHOLESTOREMIA Hx Hypertension: Yes Hx Pacemaker: No Hx Asthma: No Hx COPD: No Hx Diabetes: Yes Hx Cancer: No Hx Gastrointestinal Problems: No Hx Dialysis: No Hx Neurological Problems: No Hx Cerebrovascular Accident: No Hx Seizures: No Review of Systems All Other Systems: negative except mentioned in HPI Physical Exam Vital Signs Date Time Temp Pulse Resp B/P (MAP) Pulse Ox O2 Delivery O2 Flow Rate FiO2 11/17/19 11:58 98.2 91 16 142/80 (100) 99 Room Air Sp02 EP Interpretation: reviewed, normal General Appearance: no apparent distress, alert, GCS 15, non-toxic Head: normocephalic, atraumatic Eyes: bilateral eye normal inspection, bilateral eye PERRL ENT: hearing grossly normal, normal pharynx, no angioedema, normal voice Neck: full range of motion, supple, supple/symm/no masses Respiratory: chest non-tender, lungs clear, normal breath sounds, no wheezing, speaking full sentences Cardiovascular #1: regular rate, rhythm, no edema Cardiovascular #2: 2+ radial (R), 2+ radial (L) Gastrointestinal: normal bowel sounds, non tender, soft, non-distended, no guarding, no rebound Rectal: deferred Genitourinary: no CVA tenderness Musculoskeletal: back normal, swelling - left index finger Neurologic: alert, motor strength/tone normal, oriented x3, sensory intact, responsive, speech normal Psychiatric: judgement/insight normal, memory normal, mood/affect normal, no suicidal/homicidal ideation Skin: laceration - superficial left index finger medial Lymphatic: no adenopathy Procedures Laceration/Wound Repair Laceration/Wound Repair : Consent: Verbal Wound Location: upper extremity - left index Wound's Depth, Shape: superficial - left index finger Wound Length (cm): 1 Wound Explored: clean Betadine Prep?: Yes Wound Repaired With: Dermabond Layer Closure?: Yes Sterile Dressing Applied?: Yes Splint Applied?: No Sling Applied?: No Patient Tolerated: Well Complications: None Medical Decision Making PA Attestation ALL Diagnosis and treatment plan reviewed and discussed with my supervising physician Dr. Donahue Diagnostic Impression: Primary Impression: Laceration ER Course 54-year-old female with history of diabetes and hypertension currently controlled with medication here due to a laceration left index pain that started this morning. Patient was cutting vegetables when she accidentally got a laceration on the medial side of left index finger. Superficial laceration with no bleeding noted. Patient is not taking any blood thinners. Patient is up-to-date with tetanus shot. Is neurovascularly intact. Has full extremity affected side. Denies other injuries. Complains of 5 out of 10 pain without radiation. Denies tingling or numbness. Ddx considered but are not limited to : Superficial laceration, deep laceration, tendon involvement with laceration, laceration with foreign body Vital signs: are WNL, pt. is afebrile H&PE are most consistent with: Superficial laceration finger, hand x-ray ORDERS: Bactrim DS as patient is diabetic, ibuprofen ED INTERVENTIONS: Wound closure, clean and dressed DISCHARGE: At this time pt. is stable for d/c to home. Will provide printed patient care instructions, and any necessary prescriptions. Care plan and follow up instructions have been discussed with the patient prior to discharge. Patient medications, follow primary care provider, with worsening symptoms return to the emergency room Other X-Ray Diagnostic Results Other X-Ray Diagnostic Results : X-Ray ordered: Hands # of Views/Limited Vs Complete: 3 View Indication: Pain EP Interpretation: Yes KANNAN Xray: Interpretation reviewed, by supervising MD, and agrees with findings. Interpretation: no dislocation, no soft tissue swelling, no fractures, other - No foreign body Impression: No acute disease Electronically Signed by: Saurabh Bean PA-C Last Vital Signs Date Time Temp Pulse Resp B/P (MAP) Pulse Ox O2 Delivery O2 Flow Rate FiO2 11/17/19 12:08 98.2 16 142/80 99 Room Air 11/17/19 11:58 91 Disposition: HOME, SELF-CARE Condition: Stable Scripts Acetaminophen* (TYLENOL EXTRA STRENGTH*) 500 Mg Tablet 500 MG ORAL Q8H PRN for Prn Headache/Temp > 101, #30 TAB 0 Refills Prov: Saurabh Fowler 11/17/19 Trimethoprim/Sulfamethoxazole 160/800* (BACTRIM DS TABLET*) 1 Each Tablet 1 TAB ORAL TWICE A DAY for 7 Days, #14 TAB Prov: Saurabh Fowler 11/17/19 Patient Instructions: Laceration Care, Adult Additional Instructions: Take medication as directed, follow with primary care provider, if worsening symptoms return to the emergency Saurabh Fowler Nov 17, 2019 12:26
[2019-11-17] MEDS ORDERED: TYLENOL EXTRA500 MG ORAL (13:24)
[2019-11-17] MEDS ORDERED: BACTRIM DS TAB1 EAC1 ORAL (13:24)
[2019-11-17 13:35] VITALS: BP 142/80
--- NOTE | 2019-11-17 13:35 | NUR ---
ED Nurse Note: Pt cleared by health care Provider for discharge. DC instructions/prescription was given and explained to pt and verbalized understanding of teachings. All medical deviecs such as ID band removed. Pt is AAO x4, ambulatory and left with all personal belongings.
--- NOTE | 2019-11-17 19:18 | Diagnostic Imaging Report ---
Indication: Pain, trauma, possible foreign body Technique: 3 views left hand Comparison: none Findings: No acute fractures. No dislocations. No radiopaque foreign body Impression: Negative
== END 2019-11-17 13:35 | disposition home or self-care (01) ==
LOC: EMR 13:20
DX: S61.211A Laceration without foreign body of left index finger without damage to nail, initial encounter (principal); E78.00 Pure hypercholesterolemia, unspecified; I10 Essential (primary) hypertension; W26.0XXA Contact with knife, initial encounter; Y93.G3 Activity, cooking and baking; Y92.9 Unspecified place or not applicable; Z88.0 Allergy status to penicillin; E11.9 Type 2 diabetes mellitus without complications; Z23 Encounter for immunization
CPT/HCPCS: 12001; 73130; 90471; 90715; Z7502; 99283